=== PATIENT | female | born 2000 | race Caucasian/White ===

== ENCOUNTER → 2020-06-30 | Outpatient (CLI) | payer MEDICAID ==
[~2020-06-30] MED LIST: L-NO1TBD14 PO; OXYC-302 PO
== END | disposition home or self-care (01) ==
LOC: STAR 12:45
PROVIDERS: ATTEND Anesthesiology
DX: Z20.828 Contact with and (suspected) exposure to other viral communicable diseases (principal)
CPT/HCPCS: 87635

== ENCOUNTER 2020-07-04 08:35 | Day surgery (SDC) | payer MEDICAID ==
[~2020-07-04] VITALS: Ht 157.5 cm; Wt 89.4 kg
[~2020-07-04 08:35] MED LIST changes: +ALBUTEROL INHALER INH; +EPHEDRINE 50 MG/ML, 1ML IVPush PRN; +ETONOGESTREL IMPLANT; +FENTANYL PF 100 MCG/2ML IV PRN; +HYDROmorphone 1 MG/ML, 1ML INJ IVPush PRN; +LABETALOL 5MG/ML, 20ML IV PRN; +MEPERIDINE/PF 25MG/0.5ML IVPush PRN; +ONDANSETRON 2MG/ML, 2ML IVPush PRN; +OXYcodone 5 MG/5 ML ORAL.SOL UDC PO PRN; +PLEASE ENTER HEIGHT AND WEIGHT MC SCH; +PROMETHAZINE 25 MG/ML, 1ML IVPush PRN; +hydrALAzine 20 MG/ML, 1ML IV PRN
[2020-07-04] MEDS ORDERED: EPINEPHRINE 1 MG/ML, 1ML ONE (08:49)
[2020-07-04] MEDS ORDERED: BUPIVACAINE/PF 0.25% ONE (08:49)
[2020-07-04 09:22] VITALS: BP 139/88
[2020-07-04] MEDS ORDERED: ACETAMINOPHEN 500 MG TABLET PO ONE (09:30)
[2020-07-04] MEDS ORDERED: CHLORHEXIDINE 15 ML UDC MM ONE (09:30)
[2020-07-04] MEDS ORDERED: LACTATED RINGERS 1,000 ML IV SCH (10:00)
[2020-07-04] MEDS ORDERED: FENTANYL PF 100 MCG/2ML ONE ×2 (10:01→10:37)
[2020-07-04] MEDS ORDERED: MIDAZOLAM 1 MG/ML, 2ML ONE (10:01)
[2020-07-04] MEDS ORDERED: DEXAMETHASONE 4 MG/ML, 1ML ONE (10:04)
[2020-07-04] MEDS ORDERED: ONDANSETRON 2MG/ML, 2ML ONE ×2 (10:04→10:49)
[2020-07-04] MEDS ORDERED: CEFAZOLIN 1,000 MG ONE (10:04)
[2020-07-04] MEDS ORDERED: PROPOFOL 10 MG/ML, 20ML ONE (10:04)
[2020-07-04] MEDS ORDERED: SODIUM CHLORIDE 0.9% PF 10ML ONE (10:05)
[2020-07-04] MEDS ORDERED: KETOROLAC 30 MG/1 ML ONE ×3 (10:05→10:49)
[2020-07-04 10:12] LABS: HCG UR SG 1.014 (1.003-1.030)
[2020-07-04] MEDS ORDERED: SILVER NITRATE STICK TP ONE (11:07)
== END 2020-07-04 12:50 | disposition home or self-care (01) ==
LOC: OUT 08:35
PROVIDERS: ATTEND Obstetrics & Gynecology
DX: N93.8 Other specified abnormal uterine and vaginal bleeding (principal); N84.0 Polyp of corpus uteri; J45.909 Unspecified asthma, uncomplicated; G43.909 Migraine, unspecified, not intractable, without status migrainosus; Z88.7 Allergy status to serum and vaccine; Z97.5 Presence of (intrauterine) contraceptive device; Z98.890 Other specified postprocedural states
CPT/HCPCS: 58558; 81025; 88305; J0171; J0690; J1100; J1885; J2250; J2405; J2704; J3010; J7120